=== PATIENT | male | born 1995 | race Caucasian/White ===

== ENCOUNTER 2023-11-13 17:41 | Emergency (ER) | payer OTHER ==
[2023-11-13] MEDS: Ondansetron 4 MG Tab.DIS PO ONE (19:41)
[2023-11-13] MEDS: Take Home: Ondansetron 4 MG Tab.DIS, 5 Tab Pack PO ONE (20:26)
== END 2023-11-13 20:30 | disposition home or self-care (01) ==
LOC: DL.ED 17:41
DX: K52.9 Noninfective gastroenteritis and colitis, unspecified (principal); Z87.891 Personal history of nicotine dependence
CPT/HCPCS: 99283; A9270; Q0162